=== PATIENT | female | born 1950 | race Asian ===

== ENCOUNTER 2017-02-14 20:52 | Emergency (ER) | payer OTHER ==
[~2017-02-14] VITALS: Ht 157.5 cm; Wt 85.0 kg
[~2017-02-14 20:52] MED LIST: ETOMIDATE 2 MG/ML 10 ML VIAL IV ONE; SUCCINYLCHOLINE CHLORIDE 20 MG/ML 10 ML VIAL IM ONE
[2017-02-14 21:06] LABS: HEMATOCRIT 43.8 % (36-46); HEMOGLOBIN 14.3 g/dL (12.0-16.0); MEAN CORPUSCULAR HEMOGLOBIN 29.8 pg (26.0-34.0); MEAN CORPUSCULAR HGB CONC 32.7 G/dL (31.0-37.0); MEAN CORPUSCULAR VOLUME 91 fL (80-100); PLATELET COUNT (AUTO) 167 K/uL (150-450); RED BLOOD CELL COUNT(AUTO) 4.79 MIL/uL (4.00-5.20); RED CELL DISTRIBUTION WIDTH 13.8 % (11.5-14.5); WHITE BLOOD COUNT (AUTO) 11.9 K/uL (4.5-11.0)
[2017-02-14 21:18] LABS: INR 1.8 (0.9-1.1); PROTHROMBIN TIME 19.2 SEC (9.4-11.6)
[2017-02-14] MEDS ORDERED: RAPID SEQUENCE KIT [RSI] 1 EACH KIT ONE ×2 (21:18)
[2017-02-14] MEDS ORDERED: SUCCINYLCHOLINE CHLORIDE 20 MG/ML 10 ML VIAL ONE (21:18)
[2017-02-14 21:19] LABS: ANION GAP 20 mmol/L (8-16); CALCIUM, TOTAL 9.4 mg/dL (8.8-10.5); CARBON DIOXIDE 21 mmol/L (22-29); CHLORIDE 102 mmol/L (98-107); CREATININE 1.08 mg/dL (0.60-1.30); GLOMERULAR FILTR. RATE CALC 51 mL/min (>60); POTASSIUM 3.3 mmol/L (3.5-5.1); SODIUM SERUM 143 mmol/L (136-145); UREA NITROGEN, BLOOD 14 mg/dL (7-18)
[2017-02-14 21:25] LABS: ALANINE AMINOTRANSFERASE 31 U/L (12-78); ALBUMIN 3.7 g/dL (3.4-5.0); ASPARTATE AMINOTRANSFERASE 21 U/L (15-37); BILIRUBIN,TOTAL 0.6 mg/dL (0.1-1.0); CREATINE KINASE, TOTAL 64 U/L (26-192); TOTAL PROTEIN, SERUM 8.5 g/dL (6.4-8.2)
[2017-02-14 21:30] LABS: BASOPHILS % (MANUAL) 1 % (0-2); EOSINOPHILS % (MANUAL) 4 % (1-6); LYMPHOCYTES % (MANUAL) 58 % (22-44); REACTIVE LYMPHOCYTES 5 % (0-0); TOTAL CELLS COUNTED 100
[2017-02-14 21:32] LABS: RBC MORPHOLOGY COMMENT NORMAL RBC MORPH
[2017-02-14] MEDS ORDERED: PROPOFOL 1000 MG/ISO-OSM 100 ML IV PRN (21:37)
[2017-02-14] MEDS ORDERED: IOVERSOL 350 MG/ML 100 ML VIAL ONE (21:42)
[2017-02-14] MEDS ORDERED: SODIUM CHLORIDE 0.9% 100 ML ONE (21:42)
[2017-02-14] MEDS ORDERED: SUCCINYLCHOLINE CHLORIDE 20 MG/ML 10 ML VIAL IVP ONE (23:00)
[2017-02-14] MEDS ORDERED: ETOMIDATE 2 MG/ML 10 ML VIAL IVP ONE (23:00)
[2017-02-14 23:03] LABS: ABG A-A DIFF O2 97.6 mmHg (10-20.0); ABG BASE EXCESS 0.2 mmol/L (-2.0-3.0); ABG HCO3 25.4 mmol/L (22.0-26.0); ABG OXYHEMOGLOBIN 98.6 % (94.0-100.0); ABG PCO2 33 mmHg (35-45); ABG PH 7.479 (7.35-7.450); ALLEN TEST, BLOOD GAS POS; TEMPERATURE, FAHRENHEIT, BG 99.1 FAHREN (96.0-98.6)
[2017-02-14] MEDS ORDERED: CALC-135 PO (23:54)
[2017-02-14] MEDS ORDERED: MULT-248 PO (23:54)
[2017-02-14] MEDS ORDERED: WARF2.5 PO (23:54)
[2017-02-14] MEDS ORDERED: DILT30 PO (23:54)
[2017-02-14] MEDS ORDERED: LORA10TA7 PO (23:54)
[2017-02-14] MEDS ORDERED: FLUT44HFA IH (23:54)
[2017-02-14] MEDS ORDERED: TIZA4TAB4 PO (23:54)
[2017-02-14] MEDS ORDERED: METO50 PO (23:54)
[2017-02-14] MEDS ORDERED: CITA20TA9 PO (23:54)
[2017-02-14] MEDS ORDERED: OXYB5 PO (23:54)
[2017-02-14] MEDS ORDERED: PANT40TA25 PO (23:54)
[2017-02-14] MEDS ORDERED: ATOR40TA28 PO (23:54)
[2017-02-15 01:08] VITALS: BP 133/98
[2017-02-16] MEDS ORDERED: HEPARIN SODIUM,PORCINE 1,000 UNITS/ML 10 ML VIAL IVP ONE (16:10)
== END 2017-02-15 01:55 | disposition short-term general hospital (02) ==
LOC: EDBD 20:56 → EMS 20:56
DX: I63.9 Cerebral infarction, unspecified (principal); I48.91 Unspecified atrial fibrillation
CPT/HCPCS: 31500; 51702; 70450; 70496; 71010; 80053; 82550; 82805; 84484; 85025; 85610; 85730; 93005; 94002; 99291; J0330; J2704; J3490; J7050; Q9967; Z7610; 96374; J1644